=== PATIENT | female | born 1940 | race African-American/Black ===

== ENCOUNTER 2018-09-06 15:09 | Observation (INO) ==
[2018-09-06] MEDS ORDERED: Acetaminophen 325 MG TABLET PO PRN (17:58)
[2018-09-06] MEDS ORDERED: Naloxone 0.4 MG/ML INJ IVP PRN (17:58)
[2018-09-06] MEDS ORDERED: *HR* OxyCODONE Immed Rel 5 MG TABLET PO PRN (17:58)
[2018-09-06] MEDS ORDERED: *HR* HYDROcodone/Acet 5/325 mg TABLET PO PRN (17:58)
[2018-09-06] MEDS ORDERED: Ondansetron 4 MG/2 ML VIAL IVP PRN (17:58)
[2018-09-06] MEDS ORDERED: Nitroglycerin 0.4 MG TAB.SUBL SL PRN (18:02)
[2018-09-06] MEDS ORDERED: D5% in Water 1,000 ML IVC PRN (18:07)
[2018-09-06] MEDS ORDERED: Dextrose Gel 15 GM/37.5 ML TUBE PO PRN ×2 (18:07)
[2018-09-06] MEDS ORDERED: *HR* Dextrose 50 % in Water (Syg) 50 ML SYRINGE IVP PRN (18:07)
[2018-09-06] MEDS ORDERED: Isosorbide MONOnitrate (24 HR) 30 MG TAB.ER.24H PO SCH (18:15)
--- NOTE | 2018-09-06 18:30 | Internal Med History&Physical ---
Date of Encounter: 09/06/18 Time of Encounter: 18:00 Internal Medicine - H&P: HPI Chief complaint: Chest pain Admitted From: Home Plans for Post Hospital Care: Home History of present illness: Ms. Andersen is a 77 year old female present to ER for chest pain for 3-4 days. Past medical history is significant for CAD S/P CABG and stent in 2001, diabetes, hypertension, COPD, brain aneurysm Patient had CABG in 2000 and 3 stent in 2001. After that she has intermittent chest pain on and off. Since 3 days ago, she started to have chest pain, which located on left chest, radiated to back, intermittent, sharp, rated 7 out of 10. Patient has shortness of breath, nausea, vomited once, and diaphoresis during the pain. Patient denies fever or cough. Patient tried nitroglycerin spray, which can relieve pain for several minutes. In the emergency room, chest x-ray unremarkable, EKG shows sinus rhythm, with flat T wave on all lead, no ST elevation. First troponin negative. Patient was given morphine which improved the pain. Patient was transferred to our hospital for further management. Past Med Surg Social Fam HX - Past Medical History Medical history: COPD, coronary artery disease, diabetes, hyperlipidemia, hypertension, myocardial infarction Psychiatric history: anxiety, depression - Past Surgical History Surgical History: angioplasty/stent, cholecystectomy, coronary bypass (CABG), hysterectomy, orthopedic, other Additional surgical history: bypass. cardiac stents. bone spur left foot - Social History Smoking Status: Former smoker Alcohol use: rarely Drug use: none - Family History Mother Living Status: Hx Family Cardiac Disorders: Yes Internal Medicine - H&P: Meds Amitriptyline [Elavil] 25 mg PO HS PRN 09/06/18 [History] Aspirin [Lo-Dose Aspirin EC] 81 mg PO DAILY 09/06/18 [History] Clopidogrel [Plavix] 75 mg PO DAILY 09/06/18 [History] Docusate Sodium [Doc-Q-Lace] 100 mg PO HS 09/06/18 [History] Esomeprazole Magnesium [Nexium] 40 mg PO DAILY 09/06/18 [History] Etodolac 200 mg PO BID PRN 09/06/18 [History] FLUoxetine HCl [Fluoxetine HCl] 40 mg PO DAILY 09/06/18 [History] Furosemide [Lasix] 40 mg PO DAILY 09/06/18 [History] Gabapentin [Neurontin] 300 mg PO TID 09/06/18 [History] Nitroglycerin 0.6 mg TD DAILY 09/06/18 [History] Nitroglycerin [Nitromist] 4.1 gm TL Q5MIN PRN 09/06/18 [History] Pravastatin Sodium [Pravachol] 80 mg PO DAILY 09/06/18 [History] Tramadol HCl [Ultram] 50 mg PO QID PRN 09/06/18 [History] Allergy/AdvReac Type Severity Reaction Status Date / Time codeine Allergy See Verified 09/06/18 13:37 Comments soy Allergy Hives Verified 09/06/18 13:37 All Systems PM: A 10-system review of systems was performed and is negative for pertinent findings except as documented above in the HPI. - Constitutional Vitals: Temp Pulse Resp BP Pulse Ox 97.7 F 54 17 103/61 95 09/06/18 18:01 09/06/18 18:01 09/06/18 18:01 09/06/18 18:01 09/06/18 18:01 Exam: Pt is AAO x 3, in NAD HEENT: NC/AT, PERRL Neck: Supple, no JVD, no LAD Lungs: CTA b/l, chest wall tenderness on mid chest Heart: S1S2, RRR Abd: Soft, nontender, BS present Ext: ROM wnl, no pedal edema Neuro: No focal deficit - Assessment and Plan (1) CAD (coronary artery disease) Current Visit: Yes Status: Acute Assessment and plan: Patient has history of CAD S/P CABG and stent. We will continue home medication aspirin, Plavix, Pravastatin, not on beta kacy possibly due to low heart rate. - Consider add Imdur as patient has intermittent chest pain. Qualifiers: Coronary Disease-Associated Artery/Lesion type: [place] artery [place] vs. transplanted heart: [place] heart Associated angina: with unstable angina Qualified Code(s): I25.110 - Atherosclerotic heart disease of [place] coronary artery with unstable angina pectoris (2) Diabetes mellitus Current Visit: Yes Status: Acute Assessment and plan: Continue basal and sliding scale insulin coverage. 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 Continue home medications Qualifiers: Hypertension type: essential hypertension Qualified Code(s): I10 - Essential (primary) hypertension (4) COPD (chronic obstructive pulmonary disease) Current Visit: Yes Status: Acute Assessment and plan: Patient has no wheezing. No signs of COPD exacerbation. Continue home medications. 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 Has chest pain responded to nitroglycerin. Chest pain is intermittent. Need to rule out ACS. Patient has some chest wall tenderness. - Continuous cardiac monitoring - Track totally 3 sets of troponin - Echocardiogram - Repeat EKG in a.m. - Nitroglycerin as needed, - pain medication for pain if patient not respond well to nitroglycerin - Consult cardiology, not consider stress test as patient has active chest pain. Qualifiers: Chest pain type: precordial pain Qualified Code(s): R07.2 - Precordial pain - Time Spent With Patient Total time spent is greater than 50% in coordination of care (as documented) at patient's floor/unit and/or counseling patient: 40 minutes Greater than 35 minutes
[2018-09-06] MEDS ORDERED: Ipratropium/Albuterol Neb 3 ML IH PRN (18:38)
[2018-09-06] MEDS ORDERED: Insulin DETEMIR 100 UNIT/ML X5UNITS SQ SCH (21:00)
[2018-09-06] MEDS ORDERED: Insulin LISPRO 300 UNITS/3 ML VIAL SQ SCH (21:00)
[2018-09-06] MEDS: Isosorbide MONOnitrate (24 HR) 30 MG TAB.ER.24H PO SCH (21:40)
[2018-09-07 02:42] LABS: Basophils % 0.3 %; Eosinophils # 0.1 K/mcL (0.0-0.6); Eosinophils % 2.2 %; Hematocrit 33.9 % (35.3-44.9); Hemoglobin 11.5 g/dL (11.5-15.4); Immature Granulocytes % 0.2 % (0-4); Lymphocytes # 2.5 K/mcL (0.6-4.6); Lymphocytes % 39.3 %; Mean Corpuscular HGB Conc 33.9 g/dL (31.6-35.5); Mean Corpuscular Hemoglobin 30.3 pg (28.0-33.3); Mean Corpuscular Volume 89.4 fL (83.0-100.0); Mean Platelet Volume 10.4 fL (9.4-12.4); Monocytes # 0.4 K/mcL (0.0-1.3); Monocytes % 6.1 %; Neutrophils # 3.3 K/mcL (1.6-8.9); Platelet Count 168 K/mcL (140-400); Red Blood Count 3.79 M/mcL (3.82-4.97); Red Cell Distribution Width 12.7 % (11.5-14.5); Segmented Neutrophils % 51.9 %
[2018-09-07 02:58] LABS: BUN/Creatinine Ratio 15 (6-26); Blood Urea Nitrogen 13 mg/dL (8-23); Calcium 8.8 mg/dL (8.6-10.3); Carbon Dioxide 28 mEq/L (23-29); Chloride 105 mEq/L (98-107); Glucose 105 mg/dL (70-105); Magnesium 1.8 mg/dL (1.6-2.6); Osmolality,Calculated 288 (280-300); Potassium 3.6 mEq/L (3.5-5.1); Sodium 139 mEq/L (136-145); eGFR For Non-African Americans > 60 (> 60)
[2018-09-07] MEDS ORDERED: *HR* Heparin 5,000 UNIT/ML VIAL SQ SCH (06:00)
[2018-09-07] MEDS: Insulin LISPRO 300 UNITS/3 ML VIAL SQ SCH ×2 (08:40→13:06)
[2018-09-07] MEDS ORDERED: Furosemide 40 MG TABLET PO SCH (09:00)
[2018-09-07] MEDS ORDERED: Aspirin Enteric Coated 81 MG Tablet PO SCH (09:00)
[2018-09-07] MEDS ORDERED: Regadenoson 0.4 MG/5 ML SYRINGE IVP ONE (12:11)
--- NOTE | 2018-09-07 12:44 | Cardiology Consult Note ---
<Patrizia Jack - Last Filed: 09/07/18 15:39> Date of Encounter: 09/07/18 Time of Encounter: 12:43 Assessment and Plan (1) Chest pain Status: Acute Presents with 3-4 days of chest pain Cardiac history significant for CAD sp CABG and stents, also HTN, CHF, and DM EKG: Sinus bradycardia with 1st degree AV block. Non specific ST changes, no signs of ischemia. Mild bradycardia, HR 55-60's, discussed with patient and appears to be chronic issue ECHO shows LVEF 55%. Moderate left ventricular diastolic dysfunction. Normal right ventricular structure and function. Mild-moderate mitral regurgitation. Mild tricuspid regurgitation. Mild pulmonary hypertension. Nuclear stress test- Perfusion imaging was negative for ischemia or infarct Negative troponins Continue treatment for CAD, HTN, CHF Aspirin, plavix, metoprolol, pravastatin, imdur Lasix Cardiology will sign off, please reconsult as needed, all questions and concerns addressed, follow up arranged. Qualifiers: Chest pain type: precordial pain Qualified Code(s): R07.2 - Precordial pain (2) CAD (coronary artery disease) Status: Acute History of CAD sp CABGx2 in 2000 and stents x3 in 2001 EKG: Sinus bradycardia with 1st degree AV block. Non specific ST changes, no signs of ischemia. ECHO shows LVEF 55%. Moderate left ventricular diastolic dysfunction. Normal right ventricular structure and function. Mild-moderate mitral regurgitation. Mild tricuspid regurgitation. Mild pulmonary hypertension Troponin <0.03 x 3 Continue aspirin, plavix, metoprolol, pravastatin Qualifiers: Coronary Disease-Associated Artery/Lesion type: [place] artery [place] vs. t ransplanted heart: [place] heart Associated angina: with unstable angina Qualified Code(s): I25.110 - Atherosclerotic heart disease of [place] coronary artery with unstable angina pectoris (3) Heart failure with preserved ejection fraction Status: Chronic History of diastolic CHF Currently euvolemic ECHO shows LVEF 55%. Moderate left ventricular diastolic dysfunction. Normal right ventricular structure and function. Mild-moderate mitral regurgitation. Mild tricuspid regurgitation. Mild pulmonary hypertension. 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 All questions were answered. Thank you for involving us in the care of your patient. Please call with any questions. History of Present Illness Consult date: 09/07/18 Consult reason: chest pain Chief complaint: chest pain History of present illness: Ms. Andersen is a 77 year old female who preCHF, HTN, DM, sents with complaint of chest pain. PMH CAD s/p CABGx2 in 2000 and stents x 3 in 2001, CHF, HTN, CM, HLD, brain aneurysm x2, and anxiety/depression. She states that she has had intermittent chest pain for years, however it has become worse over the last 3-4 days. She states that it is left sided with radiation across chest wall to back ribs and left shoulder, intermittent, pressure sensation, without exertional component, 7/10 in severity accompanied by intermittent palpitations and shortness of breath at rest and exertion. She admits to syncopal episode 4 days ago as well and found her glucose to be in low 60's. She denies fever, chills, nausea, vomiting, dysphagia, pleuritic pain, cough, abdominal pain, diarrhea, constipation, melena, hematochezia, dysuria, hematuria, calf pain, or weakness. Past Med Surg Social Fam HX - Past Medical History Medical history: COPD, coronary artery disease, diabetes, hyperlipidemia, hypertension, myocardial infarction Psychiatric history: anxiety, depression - Past Surgical History Surgical History: angioplasty/stent, cholecystectomy, coronary bypass (CABG), hysterectomy, orthopedic, other Additional surgical history: bypass. cardiac stents. bone spur left foot - Social History Smoking Status: Former smoker Alcohol use: rarely Drug use: none - Family History Mother Living Status: Hx Family Cardiac Disorders: Yes Medications and Allergies Amitriptyline [Elavil] 25 mg PO HS PRN 09/06/18 [History] Aspirin [Lo-Dose Aspirin EC] 81 mg PO DAILY 09/06/18 [History] Clopidogrel [Plavix] 75 mg PO DAILY 09/06/18 [History] Docusate Sodium [Doc-Q-Lace] 100 mg PO HS 09/06/18 [History] Esomeprazole Magnesium [Nexium] 40 mg PO DAILY 09/06/18 [History] Etodolac 200 mg PO BID PRN 09/06/18 [History] FLUoxetine HCl [Fluoxetine HCl] 40 mg PO DAILY 09/06/18 [History] Furosemide [Lasix] 40 mg PO DAILY 09/06/18 [History] Gabapentin [Neurontin] 300 mg PO TID 09/06/18 [History] Insulin Glargine [Lantus] 30 unit SQ HS 09/06/18 [History] Insulin LISPRO [HumaLOG] 10 units SQ TIDWM 09/06/18 [History] Metoprolol Succinate [Toprol Xl] 100 mg PO DAILY 09/06/18 [History] Nitroglycerin 0.6 mg TD DAILY 09/06/18 [History] Nitroglycerin [Nitromist] 4.1 gm TL Q5MIN PRN MDD x3 sprays 09/06/18 [History] Pravastatin Sodium [Pravachol] 80 mg PO DAILY 09/06/18 [History] Tramadol HCl [Ultram] 50 mg PO QID PRN 09/06/18 [History] Isosorbide MONOnitrate (24 HR) [Imdur] 30 mg PO DAILY #30 tab.er.24h 09/07/18 [Rx] Allergy/AdvReac Type Severity Reaction Status Date / Time codeine Allergy See Verified 09/06/18 19:17 Comments soy Allergy Hives Verified 09/06/18 19:17 All Systems Review: The remainder of the systems were reviewed and are negative - Constitutional Constitutional: no chills, no fever(s), no frequent falls, no weakness - EENT Eyes: no blurred vision Nose, mouth and throat: no dysphagia - Cardiovascular Cardiovascular: chest pain at rest, chest pain with exertion, dyspnea at rest, dyspnea on exertion, no diaphoresis, no irregular heart rhythm, no radiating jaw, neck or arm pain, no leg edema - Respiratory Respiratory: dyspnea, no cough - Gastrointestinal Gastrointestinal: no abdominal pain, no constipation, no diarrhea, no hematochezia, no melena - Genitourinary Genitourinary: no dysuria, no hematuria - Musculoskeletal Musculoskeletal: no arthralgias, no myalgias - Integumentary Integumentary: no erythema, no rash - Neurological Neurological: numbness, syncope, tingling, no dizziness, no focal weakness, no memory loss - Psychiatric Psychiatric: anxiety, depression - Hematological/Lymphatic Hematologic/Lymphatic: no easy bleeding, no easy bruising Physical Examination Vital Signs, Last 4 Hours Temp Pulse Resp BP Pulse Ox 09/07/18 11:25 98.6 F 56 16 135/69 96 General: Conversant, No Apparent Distress HEENT: Atraumatic, Normocephaly, Mucus Membranes Moist Neck: No JVD, Normal carotid pulses Cardiac: Reg Rate and Rhythm, Normal S1 and S2, No Murmur Lungs: Normal Breath Sounds, No Wheeze, Rales, Rhonchi Neuro: Alert and responsive, No focal deficits noted Abdomen: Soft, Non-Tender Skin: No rashes noted on visualized skin Musculoskeletal: No Chest Wall Tenderness Extremities: No Clubbing, No Cyanosis, No Edema, Normal Pulses Results 09/07/18 02:08 09/07/18 02:08 Lab Results 09/06/18 09/07/18 09/07/18 19:36 02:08 02:08 WBC 6.3 Hgb 11.5 D Hct 33.9 L Plt Count 168 Sodium Potassium Chloride Carbon Dioxide BUN Creatinine Glucose Calcium Magnesium Troponin I < 0.03 < 0.03 09/07/18 02:08 WBC Hgb Hct Plt Count Sodium 139 Potassium 3.6 Chloride 105 Carbon Dioxide 28 BUN 13 Creatinine 0.88 Glucose 105 Calcium 8.8 Magnesium 1.8 Troponin I Consult Discharge Plan - Plan Instructions: Chest Pain (DC), Diabetes Mellitus Type 2 in Adults (DC) Additional Instructions: Follow-up appointments: If there is not an appointment listed below, please call your physician and schedule a follow-up appointment. If you have congestive heart failure and your symptoms return, make an appointment with your physician. Medication List: Carry an up to date list of medications you are taking at all time. We have given you an updated medication list including any new medications that you have been prescribed. Please provide that list to your primary provider Symptoms: If your condition changes or you experience any of the following symptoms, notify your physician immediately: Unusual or worsening pain, fever, persistent nausea and vomiting, bleeding, increase in swelling (especially in your legs), sudden weight gain, extreme diz ziness, chest pain, increased drainage or redness from a wound or incision. Go to the emergency department if you experience a problem with breathing. Weights: If you have a history of swelling or shortness of breath, weigh yourself daily and notify your physician if you have a weight gain of two or more pounds in one day or 5 or more pounds in a week. If you experience any of the warning signs for stroke: Sudden numbness or weakness of the face, arm or leg; especially on one side of the body, sudden confusion, trouble speaking or understanding, sudden trouble seeing in one or both eyes, sudden trouble walking, dizziness, loss of balance or coordination, sudden sever headache with no cause; Call 911 or go to the emergency room. Stroke is a medical emergency. Some risk factors for stroke: Age, cigarette smoking, diabetes, excessive alcohol consumption, family history, high blood pressure, overweight, physical inactivity, prior stroke, heart attack, diagnosis of carotid artery stenosis or other artery disease. If you smoke, STOP: Smoking or tobacco use significantly increases your risk of heart and lung disease. Your chance of disease greatly increases if you continue to smoke. For more information, call the [place] tobacco quit line for smoking cessation 1-964-HZFT-NOW ( ) Referrals: Astrid Francois, EDUAR [Primary Care Provider] - (Appointment has been requested) Aashish Castillo DO [Partnered Physician] - (Appointment has been requested. Our offices will call you with an appointment time and date. If you do not hear from us, please call [phone]) Prescriptions: Isosorbide MONOnitrate (24 HR) [Imdur] 30 mg PO DAILY #30 tab.er.24h <Iva Stoll - Last Filed: 09/07/18 18:08> Date of Encounter: 09/07/18 - Attending Attestation Patient was seen and evaluated independently by me. Findings, assessment and plan were discussed at length with patient, questions answered. Agree with nurse practitioner's/resident's documentation. Addition as follows, 77 yoCF ho remote CABG then PCI with stable angina, brain, aneurysm, DM, HTN. P/w worsening atypical chest pain with typical features 4 days. ECG no ischemic changes, 1st degree AVB, NS STT changes. tropo neg, mild BNP elevation. TTE LVEF 55%, mod DD, RV nl, mild-mod MR, mild TR, mild PH. VSS, euvolemia on exam. A: Chest pain, suspected unstable angina CAD s/p remote CABG then PCI ([place]) DM HTN P: Pharm SPECT, if negative for ischemia, no further inpatient CV w/u c/w DAPT, statin, imdur, BB Iva Stoll MD, PhD Assessment and Plan Discussion w patient/family: The assessment and plan as outlined above was discussed with the patient and/or family members who expressed understanding and agreement. All questions were answered. Thank you for involving us in the care of your patient. Please call with any questions. History of Present Illness History of present illness: Ms. Andersen is a 77 year old female All Systems Review: The remainder of the systems were reviewed and are negative Physical Examination Vital Signs, Last 4 Hours Temp Pulse Resp BP Pulse Ox 09/07/18 15:22 98.1 F 61 16 131/61 96 Results 09/07/18 02:08 09/07/18 02:08 Lab Results 09/06/18 09/07/18 09/07/18 19:36 02:08 02:08 WBC 6.3 Hgb 11.5 D Hct 33.9 L Plt Count 168 Sodium Potassium Chloride Carbon Dioxide BUN Creatinine Glucose Calcium Magnesium Troponin I < 0.03 < 0.03 09/07/18 02:08 WBC Hgb Hct Plt Count Sodium 139 Potassium 3.6 Chloride 105 Carbon Dioxide 28 BUN 13 Creatinine 0.88 Glucose 105 Calcium 8.8 Magnesium 1.8 Troponin I
[2018-09-07] MEDS: Isosorbide MONOnitrate (24 HR) 30 MG TAB.ER.24H PO SCH (14:11)
--- NOTE | 2018-09-07 14:47 | Event Note ---
Date of Encounter: 09/07/18 Time of Encounter: 14:45 - Cardiology Event Note ST: Impression: Perfusion imaging was negative for ischemia or infarct. Small sized, mild intensity fixed perfusion defect involving the apical lateral wall consistent with artifact. Pharmacologic stress ECG is non diagnostic for ischemia due to baseline non-specific ST and T changes. Gated EF = 70%. ECHO: Impressions: LVEF 55%. Moderate left ventricular diastolic dysfunction. Normal right ventricular structure and function. Mild-moderate mitral regurgitation. Mild tricuspid regurgitation. Mild pulmonary hypertension. Left Ventricular Wall Motion: Rest Echo Findings All wall segments showed normal motion. Cardiology signing off, reconsult as needed, follow-up arranged.
[2018-09-07 15:23] VITALS: BP 131/61
--- NOTE | 2018-09-07 15:43 | Discharge Summary ---
- NOTES TO OUTPATIENT PROVIDER Notes to Outpatient Provider: f/u with PCP in one week. Please start taking Imdur 30mg PO Daily Orders not resulted at time of discharge: Pending orders 09/07/18 10:51 NM johanna perf SPECT multi [NM] Routine Date of Encounter: 09/07/18 Time of Encounter: 15:42 - Discharge Diagnosis (1) Chest pain Priority: Primary Status: Acute Qualifiers: Chest pain type: precordial pain Qualified Code(s): R07.2 - Precordial pain (2) CAD (coronary artery disease) Priority: Primary Status: Acute Qualifiers: Coronary Disease-Associated Artery/Lesion type: alutiiq artery [place] vs. 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 Andersen is a 77 year old female with a known past medical history of CAD S/P CABG and stent in 2001, diabetes, hypertension, COPD, brain aneurysm patient presented to ER with intermittent chest pain from last couple of days. Patient stated her chest pain located sub sternal and radiating to her upper back and sharp pain. She was admitted in the hospital and list on secured entrance monitor. Her serial troponin came back is negative. She does have some nonspecific EKG changes. She did go for nuclear stress test which came back is negative for ischemia or infarction. So will discharge her home in a stable condition today. I did add imdur to her blood pressure medication. Will d/c her home in stable condition today. - Time Spent with Patient Total time spent providing and/or coordinating discharge services: - Discharge Medications Prescriptions: New Isosorbide MONOnitrate (24 HR) [Imdur] 30 mg PO DAILY #30 tab.er.24h Continue Insulin Glargine [Lantus] 30 unit SQ HS Insulin LISPRO [HumaLOG] 10 units SQ TIDWM Metoprolol Succinate [Toprol Xl] 100 mg PO DAILY Tramadol HCl [Ultram] 50 mg PO QID PRN PRN Reason: Pain Nitroglycerin 0.6 mg TD DAILY Nitroglycerin [Nitromist] 4.1 gm TL Q5MIN PRN MDD x3 sprays PRN Reason: Chest Pain FLUoxetine HCl [Fluoxetine HCl] 40 mg PO DAILY Esomeprazole Magnesium [Nexium] 40 mg PO DAILY Aspirin [Lo-Dose Aspirin EC] 81 mg PO DAILY Furosemide [Lasix] 40 mg PO DAILY Docusate Sodium [Doc-Q-Lace] 100 mg PO HS Etodolac 200 mg PO BID PRN PRN Reason: Pain Clopidogrel [Plavix] 75 mg PO DAILY Amitriptyline [Elavil] 25 mg PO HS PRN PRN Reason: Sleep Pravastatin Sodium [Pravachol] 80 mg PO DAILY Gabapentin [Neurontin] 300 mg PO TID Home Medications: Amitriptyline [Elavil] 25 mg PO HS PRN 09/06/18 [History] Aspirin [Lo-Dose Aspirin EC] 81 mg PO DAILY 09/06/18 [History] Clopidogrel [Plavix] 75 mg PO DAILY 09/06/18 [History] Docusate Sodium [Doc-Q-Lace] 100 mg PO HS 09/06/18 [History] Esomeprazole Magnesium [Nexium] 40 mg PO DAILY 09/06/18 [History] Etodolac 200 mg PO BID PRN 09/06/18 [History] FLUoxetine HCl [Fluoxetine HCl] 40 mg PO DAILY 09/06/18 [History] Furosemide [Lasix] 40 mg PO DAILY 09/06/18 [History] Gabapentin [Neurontin] 300 mg PO TID 09/06/18 [History] Insulin Glargine [Lantus] 30 unit SQ HS 09/06/18 [History] Insulin LISPRO [HumaLOG] 10 units SQ TIDWM 09/06/18 [History] Metoprolol Succinate [Toprol Xl] 100 mg PO DAILY 09/06/18 [History] Nitroglycerin 0.6 mg TD DAILY 09/06/18 [History] Nitroglycerin [Nitromist] 4.1 gm TL Q5MIN PRN MDD x3 sprays 09/06/18 [History] Pravastatin Sodium [Pravachol] 80 mg PO DAILY 09/06/18 [History] Tramadol HCl [Ultram] 50 mg PO QID PRN 09/06/18 [History] Isosorbide MONOnitrate (24 HR) [Imdur] 30 mg PO DAILY #30 tab.er.24h 09/07/18 [Rx] Allergies/Adverse Reactions: Allergy/AdvReac Type Severity Reaction Status Date / Time codeine Allergy See Verified 09/06/18 19:17 Comments soy Allergy Hives Verified 09/06/18 19:17 Date of admission: 09/06/18 17:00 Primary care physician: Astrid Francois CNP Consults: 09/06/18 18:06 Consult to Cardiology [CONS] Routine Comment: Consulting Provider: Cardiology Leena Reason for Consult: Chest pain, hx of CABG/stent, currently still has intermittent chest pain Call Completed: Yes - Constitutional Vitals: Temp Pulse Resp BP Pulse Ox 98.1 F 61 16 131/61 96 09/07/18 15:22 09/07/18 15:22 09/07/18 15:22 09/07/18 15:22 09/07/18 15:22 General appearance: Present: A&O X 3, pleasant, answers questions appropriately Exam: Gen: Alert, awake, Oriented to time,place and person Chest: Diminished breath sounds B/L, No wheezing, No crackles, No rales Heart: S1S2+ RRR No murmurs Abd: Soft, NT, BS +, No organomegaly Ext: No edema, pulses are palpable, No calf tenderness Neuro : Benign findings Skin: No rash. - Patient Status Disposition: Home, Self-Care Condition: Good Overall status at discharge: patient is back to baseline - Discharge Instructions Follow Up With: Astrid Francois CNP [Primary Care Provider] - (Appointment has been requested) Aashish Castillo DO [Partnered Physician] - - Diet and Activity Activity: increase activity as tolerated Diet: low salt diet
[2018-09-08] MEDS ORDERED: Metoprolol XL (24 HR) Succ 50 MG TAB.ER.24H PO SCH (09:00)
--- NOTE | 2018-09-08 10:51 | Electrocardiograph Report ---
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
== END 2018-09-07 16:20 | disposition home or self-care (01) ==
LOC: 3BNU
PROVIDERS: ADMIT Internal Medicine; ATTEND Internal Medicine

== ENCOUNTER 2020-07-21 20:06 | Observation (INO) ==
[2020-07-21] MEDS ORDERED: Isovue-370 500 ML BOTTLE IVP ONE (21:11)
[2020-07-21 21:32] LABS: Basophils % 0.3 %; Eosinophils # 0.2 K/mcL (0.0-0.6); Hematocrit 38.1 % (35.3-44.9); Hemoglobin 12.6 g/dL (11.5-15.4); Immature Granulocytes % 0.1 % (0-4); Lymphocytes # 2.7 K/mcL (0.6-4.6); Lymphocytes % 34.9 %; Mean Corpuscular HGB Conc 33.1 g/dL (31.6-35.5); Mean Corpuscular Hemoglobin 30.7 pg (28.0-33.3); Mean Corpuscular Volume 92.9 fL (83.0-100.0); Mean Platelet Volume 10.1 fL (9.4-12.4); Monocytes # 0.5 K/mcL (0.0-1.3); Monocytes % 6.1 %; Neutrophils # 4.3 K/mcL (1.6-8.9); Platelet Count 242 K/mcL (140-400); Red Cell Distribution Width 13.4 % (11.5-14.5); Segmented Neutrophils % 56.6 %; White Blood Count 7.6 K/mcL (4.3-11.1)
[2020-07-21 21:53] LABS: BUN/Creatinine Ratio 15 (6-26); Blood Urea Nitrogen 13 mg/dL (8-23); Calcium 9.8 mg/dL (8.6-10.3); Carbon Dioxide 27 mEq/L (23-29); Chloride 99 mEq/L (98-107); Glucose 159 mg/dL (70-105); Osmolality,Calculated 283 (280-300); Potassium 4.4 mEq/L (3.5-5.1); Sodium 135 mEq/L (136-145); eGFR For African Americans > 60 (> 60); eGFR For Non-African Americans > 60 (> 60)
[2020-07-21 21:54] LABS: Troponin I < 0.03 ng/mL (< 0.04)
[2020-07-21] MEDS ORDERED: Clindamycin 900 MG/50 ML 900 MG/50 ML IV.SOLN IVPB ONE (23:39)
[2020-07-21] MEDS ORDERED: Ondansetron 4 MG/2 ML VIAL IVP ONE (23:48)
[2020-07-22] MEDS ORDERED: Acetaminophen 325 MG TABLET PO PRN ×2 (01:36→10:12)
[2020-07-22] MEDS ORDERED: Naloxone 0.4 MG/ML INJ IVP PRN ×3 (01:36→10:12)
[2020-07-22] MEDS ORDERED: Ondansetron ODT 4 MG TAB.RAPDIS SL PRN (01:36)
[2020-07-22] MEDS ORDERED: Ondansetron 4 MG/2 ML VIAL IVP PRN ×4 (02:22→10:12)
[2020-07-22] MEDS ORDERED: *HR* HYDROmorphone (PF) 1 MG/ML SYRINGE IVP ONE (02:23)
[2020-07-22] MEDS ORDERED: *HR* Dextrose 50 % in Water (Vial) 50 ML VIAL IVP PRN ×2 (03:00→10:12)
[2020-07-22] MEDS ORDERED: Dextrose Gel 15 GM/37.5 ML TUBE PO PRN ×4 (03:00→10:12)
[2020-07-22] MEDS ORDERED: D5% in Water 1,000 ML IVC PRN ×2 (03:00→10:12)
[2020-07-22 03:05] LABS: Hematocrit 35.4 % (35.3-44.9); Hemoglobin 11.7 g/dL (11.5-15.4); Mean Corpuscular HGB Conc 33.1 g/dL (31.6-35.5); Mean Corpuscular Hemoglobin 30.6 pg (28.0-33.3); Mean Corpuscular Volume 92.7 fL (83.0-100.0); Platelet Count 206 K/mcL (140-400); Red Blood Count 3.82 M/mcL (3.82-4.97); Red Cell Distribution Width 13.5 % (11.5-14.5); White Blood Count 6.6 K/mcL (4.3-11.1)
[2020-07-22] MEDS: Insulin LISPRO 300 UNITS/3 ML VIAL SUBQ SCH ×4 (03:08→17:19)
[2020-07-22 03:14] LABS: INR 1.1; Prothrombin Time 12.7 Seconds (9.4-12.1)
[2020-07-22 03:33] LABS: BUN/Creatinine Ratio 15 (6-26); Blood Urea Nitrogen 14 mg/dL (8-23); Calcium 9.5 mg/dL (8.6-10.3); Carbon Dioxide 27 mEq/L (23-29); Chloride 100 mEq/L (98-107); Glucose 169 mg/dL (70-105); Magnesium 1.8 mg/dL (1.6-2.6); Osmolality,Calculated 284 (280-300); Potassium 4.4 mEq/L (3.5-5.1); Sodium 135 mEq/L (136-145); eGFR For African Americans > 60 (> 60); eGFR For Non-African Americans 60 (> 60)
[2020-07-22 04:02] LABS: C-Reactive Protein < 5 mg/L (Less than 10)
[2020-07-22] MEDS ORDERED: Lidocaine -MPF 2% 2 ML VIAL ONE (07:31)
[2020-07-22] MEDS ORDERED: Ondansetron 4 MG/2 ML VIAL ONE (07:31)
[2020-07-22] MEDS ORDERED: Dexamethasone 4 MG/ML VIAL ONE (07:31)
[2020-07-22] MEDS ORDERED: *HR* FentaNYL (PF) 100 MCG/2 ML VIAL ONE (07:32)
[2020-07-22] MEDS ORDERED: *HR* Vasopressin 20 UNIT/ML VIAL ONE (07:33)
[2020-07-22 07:37] LABS: Adenovirus Not Detected (Not Detect); Bordetella Pertussis Not Detected (Not Detect); Chlamydophila pneumoniae Not Detected (Not Detect); Coronavirus 229E Not Detected (Not Detect); Coronavirus HKU1 Not Detected (Not Detect); Coronavirus NL63 Not Detected (Not Detect); Coronavirus OC43 Not Detected (Not Detect); Human Metapneumovirus Not Detected (Not Detect); Human Rhinovirus/Enterovirus Not Detected (Not Detect); Influenza A Subtype 2009 H1 Not Detected (Not Detect); Influenza B Not Detected (Not Detect); Mycoplasma pneumoniae Not Detected (Not Detect); Parainfluenza Virus 1 Not Detected (Not Detect); Parainfluenza Virus 2 Not Detected (Not Detect); Parainfluenza Virus 3 Not Detected (Not Detect); Parainfluenza Virus 4 Not Detected (Not Detect); Respiratory Syncytial Virus Not Detected (Not Detect); SARS-CoV-2 Not Detected (Not Detect)
[2020-07-22] MEDS ORDERED: Clindamycin 600 MG/50 ML 600 MG/50 ML IV.SOLN IVPB SCH ×2 (08:00→16:00)
[2020-07-22] MEDS ORDERED: Clindamycin 600 MG/50 ML 600 MG/50 ML IV.SOLN IVPB ONE (08:11)
[2020-07-22] MEDS ORDERED: *HR* Succinylcholine 200 MG/10 ML VIAL IVP ONE (08:21)
[2020-07-22] MEDS ORDERED: *HR* Rocuronium Bromide 50 MG/5 ML VIAL ONE (08:21)
[2020-07-22] MEDS ORDERED: Lidocaine HCL 4 ML Topical Solution (Laryng-O-Jet Kit Sterile Pak) TP ONE (08:22)
[2020-07-22] MEDS ORDERED: Nitroglycerin 0.4 MG TAB.SUBL SL PRN ×2 (08:40→10:12)
[2020-07-22] MEDS ORDERED: *HR* FentaNYL (PF) 100 MCG/2 ML VIAL IVP PRN ×2 (08:40→10:12)
[2020-07-22] MEDS ORDERED: Albuterol 2.5 MG/3 ML NEBULIZER IH PRN ×2 (08:40→10:12)
[2020-07-22] MEDS ORDERED: *HR* Labetalol 20 MG/4 ML SYRINGE IVP PRN ×2 (08:40→10:12)
[2020-07-22] MEDS ORDERED: Insulin LISPRO 300 UNITS/3 ML VIAL SUBQ SCH ×2 (21:00)
[2020-07-23 06:46] VITALS: BP 148/82
[2020-07-23] MEDS: Insulin LISPRO 300 UNITS/3 ML VIAL SUBQ SCH ×2 (11:23→12:05)
== END 2020-07-23 14:23 | disposition home or self-care (01) ==
LOC: EMEROOARM 20:06 → 3BNU 20:06 → SUATTDRO 07-22 00:34 → 3BNU 07-22 01:07
PROVIDERS: ADMIT Family Medicine; ATTEND Internal Medicine